=== PATIENT | female | born 1975 | race Caucasian/White ===

== ENCOUNTER 2024-11-29 00:11 | Emergency (ER) | payer OTHER ==
[2024-11-29 00:47] LABS: BASOPHILS ABSOLUTE AUTO 0.06 K/uL (0.00-0.10); BASOPHILS PERCENT AUTO 0.7 % (0.1-1.3); EOSINOPHILS ABSOLUTE AUTO 0.51 K/uL (0.00-0.40); EOSINOPHILS PERCENT AUTO 5.9 % (0.0-5.4); HEMATOCRIT 40.7 % (34.3-46.0); HEMOGLOBIN 13.4 g/dL (11.2-15.5); IMMATURE GRAN ABSOLUTE AUTO 0.03 K/uL (0.00-0.23); IMMATURE GRAN PERCENT AUTO 0.3 % (0.0-0.7); LACTIC ACID 0.9 mmol/L (0.4-2.0); LYMPHOCYTES ABSOLUTE AUTO 3.33 K/uL (0.8-3.3); LYMPHOCYTES PERCENT AUTO 38.6 % (11.4-47.7); MEAN CORPUSCULAR HEMOGLOBIN 29.1 pg (31.6-35.5); MEAN CORPUSCULAR HGB CONC 32.9 g/dL (31.6-35.5); MEAN CORPUSCULAR VOLUME 88.5 fL (81.4-99.0); MONOCYTES ABSOLUTE AUTO 0.56 K/uL (0.20-0.90); MONOCYTES PERCENT AUTO 6.5 % (3.3-12.6); NEUTROPHILS ABSOLUTE AUTO 4.13 K/uL (1.0-7.6); PLATELET COUNT,PLT 309 K/uL (130-375); WHITE BLOOD CELL COUNT,WBC 8.6 K/uL (3.2-11.0)
[2024-11-29] MEDS ORDERED: Naloxone 0.4 MG/ML SDV IVPUSH PRN ×2 (01:01→03:16)
[2024-11-29 01:04] LABS: A/G RATIO 0.9 (1.2-2.2); ALANINE AMINOTRANSFERASE,ALT 49 U/L (12-78); ALBUMIN 3.3 g/dL (3.4-5.0); ALKALINE PHOSPHATASE 116 U/L (46-116); ASPARTATE AMNIOTRANSFERASE,AST 62 U/L (15-37); BLOOD UREA NITROGEN,BUN 25 mg/dL (7-18); C-REACTIVE PROTEIN 0.96 mg/dL (<0.50); CALCIUM 9.5 mg/dL (8.5-10.1); CARBON DIOXIDE,CO2 28 mmol/L (21-32); CHLORIDE,CL 101 mmol/L (100-108); EST CRCL DRUG DOSING (CG) 64.41 mL/min; ESTIMATED GFR 69 mL/min (>60); GLUCOSE RANDOM 126 mg/dL (74-106); POTASSIUM,K 4.4 mmol/L (3.6-5.2); SODIUM,NA 137 mmol/L (140-148)
[2024-11-29 01:06] LABS: ANION GAP 12.4 mmol/L (5.0-14.0)
[2024-11-29] MEDS: HYDROmorphone 1 MG/ML Syringe IVPUSH ONE ×2 (01:10→03:27)
[2024-11-29] MEDS: Ondansetron 4 MG/2 ML SDV IVPUSH ONE (01:11)
[2024-11-29] MEDS: Sodium Chloride 0.9% 80 ML IV ONE (01:15)
[2024-11-29] MEDS: Iopamidol 612 MG/ML 100 ML Bottle IV PRN (01:15)
[2024-11-29] MEDS: Sodium Chloride 0.9% 10 ML Syringe FLUSH PRN (01:15)
== END 2024-11-29 03:53 | disposition other institution (70) ==
LOC: JP.ED 00:11
DX: R10.9 Unspecified abdominal pain (principal); K21.9 Gastro-esophageal reflux disease without esophagitis; E78.00 Pure hypercholesterolemia, unspecified; E11.9 Type 2 diabetes mellitus without complications; Z88.2 Allergy status to sulfonamides; Z79.82 Long term (current) use of aspirin; Z79.899 Other long term (current) drug therapy
CPT/HCPCS: 36415; 74177; 80053; 83605; 85025; 86140; 96374; 96375; 96376; 99285; J1171; J2405; Q9967; 99284